=== PATIENT | male | born 1940 | race Caucasian/White ===

== ENCOUNTER → 2021-04-20 | Outpatient (CLI) | payer MEDICARE, BC ==
--- NOTE | 2021-04-20 17:33 | RAD ---
XR KNEE_RT 1-2 VIEWS History: Reason: RIGHT KNEE PAIN S/P FRACTURE / Spl. Instructions: / History: Technique: 2 views right knee Comparison: February 21, 2021 and March 21, 2021 Findings: No dislocation. No acute fracture. Chronic avulsion fracture of the tibial tuberosity Mild knee degen erative changes most prominent within the medial and patellofemoral compartments. Vascular calcificat ions. Impression: 1. Unchanged avulsion fracture of the tibial tuberosity. 2. Mild right knee DJD Electronically signed by: Dave Pablo DO (04/20/2021 5:30 PM) [id number]
== END ==
LOC: RAD 09:23
PROVIDERS: ATTEND Physician Assistant
DX: S82.151D Displaced fracture of right tibial tuberosity, subsequent encounter for closed fracture with routine healing (principal); M17.11 Unilateral primary osteoarthritis, right knee; X58.XXXD Exposure to other specified factors, subsequent encounter
CPT/HCPCS: 73560